=== PATIENT | male | born 1955 | race Caucasian/White ===

== ENCOUNTER 2019-03-02 07:19 | Day surgery (SDC) | payer OTHER ==
[2019-03-01 17:23] LABS: Absolute Lymphocytes (CBC) 2.5 K/uL (0.7-4.9); Basophils % 0.7 % (0-1.3); Hematocrit 40.2 % (39.6-49.0); Lymphocytes % 23.4 % (15.3-44.8); MPV 8.2 fL (7.6-11.3); RBC Red Blood Cell Count 4.59 M/uL (4.33-5.43)
[2019-03-01 17:37] LABS: Potassium 3.6 mmol/L (3.5-5.1)
--- NOTE | 2019-03-01 17:47 | RAD REPORT ---
EXAM DESCRIPTION: Pearl García (2 Views)03/01/2019 5:35 pm CLINICAL HISTORY: Preop for back mass surgery COMPARISON: None FINDINGS: The lungs appear clear of acute infiltrate. The heart is normal size IMPRESSION: No acute abnormalities displayed
[2019-03-02] MEDS ORDERED: BUPIVACAINE 0.5% PF 10 ML VIAL ONE (07:43)
[2019-03-02] MEDS ORDERED: Ringers Lactate 1,000 ML IV ONE (07:45)
[2019-03-02] MEDS ORDERED: CEFAZOLIN/SWI 1gm 1 GM/10 ML SYR ONE (07:45)
[2019-03-02] MEDS ORDERED: FENTANYL CITR 100 MCG/2 ML ONE (08:55)
[2019-03-02] MEDS ORDERED: MIDAZOLAM HCL 2 MG/2 ML INJ ONE (08:55)
[2019-03-02] MEDS ORDERED: PROPOFOL 200 MG/20 ML VIAL IV ONE (08:55)
[2019-03-02] MEDS ORDERED: LIDOCAINE 1% MPF 5 ML VIAL ONE (08:55)
[2019-03-02] MEDS ORDERED: KETOROLAC 30 MG/ML INJ ONE (09:34)
[2019-03-02] MEDS ORDERED: ONDANSETRON 4 MG/2 ML VIAL ONE (09:34)
[2019-03-02] MEDS ORDERED: HYDROCODONE/APAP 7.5/325 MG TAB PO ONE (10:45)
[2019-03-02] MEDS ORDERED: HYDROCODONE/APAP 7.5/325 MG TAB ONE (10:48)
--- NOTE | 2019-03-02 11:38 | EKG ---
Test Date: 2019-03-01 Test Time: 16:51:47 Video Game Technician: JOSE MEASUREMENT RESULTS: Intervals: Rate: 63 IA: 176 QRSD: 96 QT: 414 QTc: 423 [place]: P: 42 IA: 176 QRS: 23 T: 24 INTERPRETIVE STATEMENTS: Normal sinus rhythm Normal ECG No previous ECG available for comparison Electronically Signed On 03-02-19 11:35:00 CDT by Kali Barrios
--- NOTE | 2019-03-02 22:33 | OP ---
Date of Procedure: 03/02/2019 Surgeon: Shiva Car MD Preoperative Diagnosis: Infected sebaceous cyst, right back. Postoperative Diagnosis: Infected sebaceous cyst, right back. Procedure: Wide excision, right back infected sebaceous cyst 6 x 4 cm to subcutaneous tissue. Estimated Blood Loss: Minimal. Specimen: Pus and cyst. Findings: As above. Anesthesia: General. Complications: None. Procedure In Detail: Patient was brought to the OR and placed in supine position. General anesthesi a was begun. Patient was prepped and draped in sterile fashion in left lateral position. Marcaine 0 .5% was infiltrated locally. A #15 blade was used to make a 6 x 4 cm incision to excise this inflame d sebaceous cyst with necrotic and pus oozing from the skin itself. The skin on the top was not viab le that is why we did such a wide excision, and all of the cyst contents were excised. Pus was encou ntered. Cultures were done. Wound was irrigated. Bleeding was controlled with cautery and then wet -to-dry normal saline dressing change was applied. Patient tolerated the procedure in stable conditi on, taken to Recovery in good general condition. Discharge Note: Patient will go to Day Surgery, then home when stable. Disposition: Home. Condition: Stable. Discharge Instructions: Resume home medications and diet. Activity as tolerated. No heavy lifting. Remove outer dressing in a.m. Shower. Keep wound clean and dry. Wet-to-dry normal saline dressin g changes daily. Tylenol No. 3 one tablet p.o. q.4 p.r.n. pain, Cipro 500 mg p.o. q.12. We will tea ch the patient and family. Follow up in my office in 2 weeks. Call for appointment. /MODL Voice ID: [id number] Report ID: [id number]
== END 2019-03-02 11:04 | disposition home or self-care (01) ==
LOC: OR 07:19
PROVIDERS: ATTEND Surgery
PROC: 0JB70ZZ Excision of Back Subcutaneous Tissue and Fascia, Open Approach (ICD-10-PCS; principal; 2019-03-02 08:30)
DX: L72.3 Sebaceous cyst (principal); I10 Essential (primary) hypertension; K58.9 Irritable bowel syndrome, unspecified
CPT/HCPCS: 93005; 87070; 85025; 80048; 36415; 87205; 88304; 87075; 71046; 11406; J2704; J2250; J3010; J0690; J2405